=== PATIENT | female | born 1965 | race African-American/Black ===

== ENCOUNTER 2017-06-09 00:55 | Emergency (ER) | payer BC ==
[~2017-06-09] VITALS: Ht 162.6 cm; Wt 125.0 kg
[~2017-06-09 00:55] MED LIST: FLEXERIL PO; NORVASC10 M1 PO; PRILOSEC20 MG PO; TRAMADOL HCL50 MG PO; ULTRAM50 M1 PO
[2017-06-09] MEDS ORDERED: MONTELUKAST SOD10 MG PO (01:04)
[2017-06-09 01:40] LABS: HEMOGLOBIN 13.6 g/dl (12.0-16.0); MEAN CELL VOLUME 94.8 fL CALC (80.0-100.0); MEAN CORPUSCULAR HGB 32.2 pG CALC (26.0-32.0); NEUT# 2.76 thou/uL (2.00-7.15); RED BLOOD COUNT 4.22 mill/uL (4.20-5.60); RED CELL DISTRI WIDTH 13.6 % (11.5-15.5); URINE BILIRUBIN - DIPSTICK NEGATIVE (NEGATIVE); URINE BLOOD DIPSTICK NEGATIVE (NEGATIVE); URINE CLARITY TURBID; URINE COLOR YELLOW; URINE GLUCOSE - DIPSTICK NEGATIVE (NEGATIVE); URINE KETONE NEGATIVE (NEGATIVE); URINE LEUK ESTERASE NEGATIVE (NEGATIVE); URINE NITRITE - DIPSTICK NEGATIVE (Negative); URINE PH 6.5 (4.5-8.0); URINE PROTEIN - DIPSTICK NEGATIVE (NEG-TRACE); URINE UROBILINOGEN - DIPSTICK 0.2 E.U./dL (0.2)
[2017-06-09 01:43] LABS: URINE RBC 0-2 RBC/hpf (0-5); URINE SQUAMOUS EPITHELIAL CELL MANY EPI/hpf (0-FEW); URINE WBC 0-2 WBC/hpf (0-5)
[2017-06-09 01:44] LABS: URINE YEAST FEW hpf
[2017-06-09 02:22] LABS: ALBUMIN 4.2 g/dL (3.2-5.0); ALKALINE PHOSPHATASE 103 u/l (38-126); AMYLASE 50 u/l (30-110); ANION GAP 18 (6-22 (CALC)); BILIRUBIN, TOTAL 0.4 mg/dL (0.0-1.4); BUN 11 mg/dL (7-17); BUN/CREATININE RATIO 16 (12-20 (CALC)); CALCIUM 9.4 mg/dL (8.4-10.2); CARBON DIOXIDE 21 mmol/l (22-30); CHLORIDE 111 mmol/l (95-108); CREATININE 0.7 mg/dL (0.5-1.0); GFR > 60 ML/MIN (>=60 (CALC)); GFR FOR AFR.AMER. > 60 ML/MIN (>=60 (CALC)); GLUCOSE 103 mg/dL (65-105); LIPASE 79 u/l (23-300); SGOT/AST 18 u/l (14-36); SGPT/ALT 31 u/l (9-52); SODIUM 145 mmol/l (137-146)
[2017-06-09] MEDS ORDERED: ZOFRAN ODT4 MG PO (03:50)
[2017-06-09] MEDS ORDERED: LOMOTIL2.5 MG PO (03:50)
[2017-06-09] MEDS ORDERED: AMOXICILLIN500 MG PO (03:51)
[2017-06-09 04:13] VITALS: BP 127/73
== END 2017-06-09 04:15 | disposition home or self-care (01) | DRG 153 ==
LOC: ED 00:55
PROVIDERS: Emergency Medicine
DX: J02.0 Streptococcal pharyngitis (principal); N20.0 Calculus of kidney; K52.9 Noninfective gastroenteritis and colitis, unspecified; F17.210 Nicotine dependence, cigarettes, uncomplicated; R11.2 Nausea with vomiting, unspecified; R19.00 Intra-abdominal and pelvic swelling, mass and lump, unspecified site; Z87.442 Personal history of urinary calculi

== ENCOUNTER 2017-10-07 02:23 | Emergency (ER) | payer BC ==
[~2017-10-07] VITALS: Ht 162.6 cm; Wt 115.4 kg
[~2017-10-07 02:23] MED LIST changes: +AMOXICILLIN500 MG PO; +LOMOTIL2.5 MG PO; +MONTELUKAST SOD10 MG PO; +ZOFRAN ODT4 MG PO
[2017-10-07 03:12] LABS: HEMATOCRIT 39.3 % (37.0-47.0); HEMOGLOBIN 13.4 g/dl (12.0-16.0); IMMATURE GRANULOCYTES 0.2 % (0.0-1.0); MEAN CELL VOLUME 93.8 fL CALC (80.0-100.0); MEAN CORPUSCULAR HGB CONC 34.1 g/L CALC (32.0-36.0); NEUT# 3.87 thou/uL (2.00-7.15); RED BLOOD COUNT 4.19 mill/uL (4.20-5.60); RED CELL DISTRI WIDTH 13.8 % (11.5-15.5)
[2017-10-07 03:13] LABS: URINE BILIRUBIN - DIPSTICK NEGATIVE (NEGATIVE); URINE BLOOD DIPSTICK NEGATIVE (NEGATIVE); URINE COLOR YELLOW; URINE GLUCOSE - DIPSTICK NEGATIVE (NEGATIVE); URINE KETONE TRACE mg/dL (NEGATIVE); URINE LEUK ESTERASE NEGATIVE (NEGATIVE); URINE NITRITE - DIPSTICK NEGATIVE (Negative); URINE PH 6.5 (4.5-8.0); URINE PROTEIN - DIPSTICK NEGATIVE (NEG-TRACE); URINE SPECIFIC GRAVITY 1.025; URINE UROBILINOGEN - DIPSTICK 0.2 E.U./dL (0.2)
[2017-10-07 03:17] LABS: URINE CLARITY SL CLOUDY
[2017-10-07 03:24] LABS: ALBUMIN 4.5 g/dL (3.2-5.0); ALKALINE PHOSPHATASE 107 u/l (38-126); AMYLASE 55 u/l (30-110); ANION GAP 20 (6-22 (CALC)); BILIRUBIN, TOTAL 0.3 mg/dL (0.0-1.4); BUN 17 mg/dL (7-17); BUN/CREATININE RATIO 26 (12-20 (CALC)); CARBON DIOXIDE 19 mmol/l (22-30); CHLORIDE 111 mmol/l (95-108); CREATININE 0.6 mg/dL (0.5-1.0); GFR > 60 ML/MIN (>=60 (CALC)); GFR FOR AFR.AMER. > 60 ML/MIN (>=60 (CALC)); LIPASE 44 u/l (23-300); POTASSIUM 3.7 mmol/l (3.5-5.1); SGOT/AST 26 u/l (14-36); SGPT/ALT 28 u/l (9-52); SODIUM 146 mmol/l (137-146); TOTAL PROTEIN 7.7 g/dL (6.3-8.2)
[2017-10-07 03:36] LABS: MYOGLOBIN 40 ng/mL (0 - 62)
[2017-10-07] MEDS ORDERED: BENTYL10 MG PO (05:39)
[2017-10-07 05:50] VITALS: BP 125/81
[2017-10-08] MEDS ORDERED: RANITIDINE 150150 MG PO (10:27)
== END 2017-10-07 05:50 | disposition home or self-care (01) | DRG 392 ==
LOC: ED 02:23
PROVIDERS: Emergency Medicine
DX: R10.13 Epigastric pain (principal); F17.210 Nicotine dependence, cigarettes, uncomplicated; R11.0 Nausea

== ENCOUNTER 2017-10-08 07:15 | Emergency (ER) | payer BC ==
[~2017-10-08] VITALS: Ht 162.6 cm; Wt 113.6 kg
[~2017-10-08 07:15] MED LIST changes: +BENTYL10 MG PO
[2017-10-08 08:00] LABS: HEMATOCRIT 41.8 % (37.0-47.0); HEMOGLOBIN 13.7 g/dl (12.0-16.0); IMMATURE GRANULOCYTES 0.4 % (0.0-1.0); MEAN CELL VOLUME 94.8 fL CALC (80.0-100.0); MEAN CORPUSCULAR HGB 31.1 pG CALC (26.0-32.0); MEAN CORPUSCULAR HGB CONC 32.8 g/L CALC (32.0-36.0); NEUT# 5.58 thou/uL (2.00-7.15); RED BLOOD COUNT 4.41 mill/uL (4.20-5.60); RED CELL DISTRI WIDTH 13.6 % (11.5-15.5)
[2017-10-08 08:16] LABS: ALBUMIN 4.6 g/dL (3.2-5.0); ALKALINE PHOSPHATASE 106 u/l (38-126); ANION GAP 18 (6-22 (CALC)); BILIRUBIN, TOTAL 0.8 mg/dL (0.0-1.4); BUN 11 mg/dL (7-17); BUN/CREATININE RATIO 16 (12-20 (CALC)); CARBON DIOXIDE 26 mmol/l (22-30); CHLORIDE 104 mmol/l (95-108); CREATININE 0.6 mg/dL (0.5-1.0); GFR > 60 ML/MIN (>=60 (CALC)); GFR FOR AFR.AMER. > 60 ML/MIN (>=60 (CALC)); LIPASE 93 u/l (23-300); POTASSIUM 3.7 mmol/l (3.5-5.1); SGOT/AST 22 u/l (14-36); SGPT/ALT 30 u/l (9-52); SODIUM 143 mmol/l (137-146); TOTAL PROTEIN 7.6 g/dL (6.3-8.2)
[2017-10-08 10:09] LABS: URINE BILIRUBIN - DIPSTICK NEGATIVE (NEGATIVE); URINE BLOOD DIPSTICK TRACE-LYSED (NEGATIVE); URINE COLOR YELLOW; URINE GLUCOSE - DIPSTICK NEGATIVE (NEGATIVE); URINE KETONE NEGATIVE (NEGATIVE); URINE NITRITE - DIPSTICK NEGATIVE (Negative); URINE PROTEIN - DIPSTICK NEGATIVE (NEG-TRACE); URINE UROBILINOGEN - DIPSTICK 0.2 E.U./dL (0.2)
[2017-10-08 10:18] LABS: URINE CLARITY SL CLOUDY; URINE LEUK ESTERASE TRACE (NEGATIVE)
[2017-10-08] MEDS ORDERED: RANITIDINE 150150 MG PO (10:27)
[2017-10-08 10:34] VITALS: BP 132/80
== END 2017-10-08 10:45 | disposition home or self-care (01) | DRG 392 ==
LOC: ED 07:15
PROVIDERS: Family Medicine
DX: K29.70 Gastritis, unspecified, without bleeding (principal); I10 Essential (primary) hypertension; F17.210 Nicotine dependence, cigarettes, uncomplicated

== ENCOUNTER 2020-07-27 07:17 | Emergency (ER) | payer OTHER, BC ==
[~2020-07-27] VITALS: Ht 162.6 cm; Wt 120.0 kg
[~2020-07-27 07:17] MED LIST changes: +LOSARTAN POT25 MG PO; +MELOXICAM15 MG PO; +PERCOCET 5/325M1 TAB PO; +RANITIDINE 150150 MG PO; +SINGULAIR10 MG PO; +TAMSULOSIN0.4 MG PO; +ZOFRAN4 MG/TAB PO
[2020-07-27] MEDS ORDERED: ZANTAC 150 PO (08:03)
[2020-07-27 08:05] VITALS: BP 168/88
== END 2020-07-27 08:05 | disposition home or self-care (01) | DRG 556 ==
LOC: ED 07:17
DX: M79.672 Pain in left foot (principal); I10 Essential (primary) hypertension; K21.9 Gastro-esophageal reflux disease without esophagitis; E66.3 Overweight; F17.200 Nicotine dependence, unspecified, uncomplicated; Y92.512 Supermarket, store or market as the place of occurrence of the external cause; Y99.0 Civilian activity done for income or pay; W22.8XXA Striking against or struck by other objects, initial encounter